=== PATIENT | female | born 1960 | race Caucasian/White ===

== ENCOUNTER 2025-02-18 10:05 | Outpatient (CLI) | payer OTHER | END 2025-02-18 10:06 | disposition home or self-care (01) | LOC: BICCT 10:05 | PROVIDERS: ATTEND Student in an Organized Health Care Education/Training Program | DX: Z13.6 Encounter for screening for cardiovascular disorders (principal); I25.10 Atherosclerotic heart disease of native coronary artery without angina pectoris | CPT/HCPCS: 75571 ==